=== PATIENT | female | born 1995 | race Caucasian/White ===

== ENCOUNTER 2019-08-08 14:21 | Emergency (ER) | payer SELFPAY ==
[2019-08-08] MEDS ORDERED: Morphine 4 MG/ML VIAL ONE (14:42)
--- NOTE | 2019-08-08 15:04 | RAD ---
EXAM: 4 views of the left knee HISTORY: Knee pain COMPARISON: None FINDINGS: A small knee effusion is seen. There is no evidence of acute fracture or dislocation. No si gnificant degenerative changes are seen. No soft tissue swelling is present. IMPRESSION: No evidence of acute osseous abnormality.
== END 2019-08-08 16:24 | disposition home or self-care (01) ==
LOC: ERS 14:21
DX: S83.005A Unspecified dislocation of left patella, initial encounter (principal); S80.211A Abrasion, right knee, initial encounter; F32.9 Major depressive disorder, single episode, unspecified; Z79.899 Other long term (current) drug therapy; W18.30XA Fall on same level, unspecified, initial encounter; Y93.67 Activity, basketball
CPT/HCPCS: 27560; 96374; J2270

== ENCOUNTER 2019-09-28 12:34 | Outpatient (CLI) | payer OTHER ==
--- NOTE | 2019-09-28 13:28 | MRI ---
MR OF THE LEFT KNEE WITHOUT CONTRAST INDICATION: 23-year-old female with history of left patellar dislocation; difficulty in walking TECHNIQUE: Axial and coronal PD fat sat, sagittal T2 fat sat, sagittal PD turbo spin echo and T1 rui nal images were obtained of the left knee. COMPARISON: None. FINDINGS: Joint effusion: Small joint effusion Semimembranosus-medial gastrocnemius popliteal cyst: None. Ligaments: There is destruction of the median patellofemoral ligament attachment to the medial patell a on image 13 of series 3. Small avulsed bone is seen along the ligament fragment measuring 3 mm. There is grade 1 sprain involving the femoral attachment of the median patellofemoral ligament. The M CL, ACL, PCL and LCLC are intact. Extensor mechanism: Intact. Menisci: Intact. Articular cartilage: There is a near full-thickness articular cartilage fissure and region of delamin ation measuring 4 mm involving the medial patellar facet on image 14 of series 3. There is a small focus aren't articular cartilage fissure involving the lateral femoral trochlea image 14 of series 3 measuring 1.3 mm. Osseous structures: There is a subchondral impaction fracture involving the lateral patellar facet. T here is contusion involving the medial patellar facet as well as the lateral femoral condyle. Popliteus and IT band: Normal. IMPRESSION: 1. Findings consistent with transient patellar dislocation. 2. There is a grade 1 strain involving the medial patellar retinaculum as well as the femoral attachm ent of the medial patellofemoral ligament. There is a full-thickness avulsion fracture involving the patellar attachment of the medial patellofemoral ligament. 3. There is a subchondral impaction fracture involving the lateral patellar facet. There is marrow ed logan involving the medial patella as well as the lateral femoral condyle. There is a near full-thickness articular cartilage fissure and region of delamination involving the medial patellar f acet. Small near full-thickness articular cartilage fissure involving the lateral aspect of the lateral femoral trochlea.
== END 2019-09-28 12:35 | disposition home or self-care (01) ==
LOC: SCSMRI 12:34
PROVIDERS: ATTEND Orthopaedic Surgery
DX: S83.005A Unspecified dislocation of left patella, initial encounter (principal); S82.002A Unspecified fracture of left patella, initial encounter for closed fracture; S76.112A Strain of left quadriceps muscle, fascia and tendon, initial encounter; R60.0 Localized edema